=== PATIENT | male | born 1980 | race Caucasian/White ===

== ENCOUNTER → 2024-03-16 14:35 | Outpatient (REF) | payer OTHER, SELFPAY | LOC: HWRAD 14:35 | PROVIDERS: ATTENDING PHYSICIAN Family Medicine | DX: I83.899 Varicose veins of unspecified lower extremity with other complications (principal) | CPT/HCPCS: 93970 ==

== ENCOUNTER → 2025-01-24 09:14 | Outpatient (REF) | payer OTHER, SELFPAY | LOC: HWEVLT 09:14 | PROVIDERS: ATTENDING PHYSICIAN Radiology Vascular & Interventional Radiology | DX: I83.892 Varicose veins of left lower extremity with other complications (principal) | CPT/HCPCS: 93971 ==

== ENCOUNTER → 2025-07-02 08:05 | Outpatient (REF) | payer OTHER, SELFPAY | LOC: HWEVLT 08:05 | PROVIDERS: ATTENDING PHYSICIAN Radiology Diagnostic Radiology | DX: I83.892 Varicose veins of left lower extremity with other complications (principal) | CPT/HCPCS: 36478; C1769 ==

== ENCOUNTER → 2025-07-18 14:29 | Outpatient (REF) | payer OTHER, SELFPAY | LOC: HWEVLT 14:29 | PROVIDERS: ATTENDING PHYSICIAN Radiology Vascular & Interventional Radiology | DX: I83.892 Varicose veins of left lower extremity with other complications (principal) | CPT/HCPCS: 93971 ==

== ENCOUNTER → 2025-09-17 13:50 | Outpatient (REF) | payer OTHER, SELFPAY | LOC: RAD 13:50 | PROVIDERS: ATTENDING PHYSICIAN Student in an Organized Health Care Education/Training Program | DX: R07.9 Chest pain, unspecified (principal) | CPT/HCPCS: 71046 ==

== ENCOUNTER → 2025-10-14 11:14 | Outpatient (REF) | payer OTHER, SELFPAY | LOC: HWRCS 11:14 | PROVIDERS: ATTENDING PHYSICIAN Internal Medicine Cardiovascular Disease; FAMILY PHYSICIAN Family Medicine | DX: I48.0 Paroxysmal atrial fibrillation (principal) | CPT/HCPCS: 93306 ==

== ENCOUNTER → 2025-10-17 09:57 | Outpatient (REF) | payer OTHER, SELFPAY | LOC: RCS 09:57 | PROVIDERS: ATTENDING PHYSICIAN Internal Medicine Cardiovascular Disease; FAMILY PHYSICIAN Family Medicine | DX: R07.89 Other chest pain (principal) | CPT/HCPCS: 93017; 93350 ==

== ENCOUNTER → 2025-10-28 11:55 | Outpatient (REF) | payer OTHER, SELFPAY | LOC: MRI 3T 11:55 | PROVIDERS: ATTENDING PHYSICIAN Specialist; FAMILY PHYSICIAN Family Medicine | DX: G44.53 Primary thunderclap headache (principal); R94.02 Abnormal brain scan | CPT/HCPCS: 70553; A9575 ==